=== PATIENT | female | born 1965 | race Caucasian/White ===

== ENCOUNTER 2017-05-26 15:06 | Emergency (ER) | payer OTHER ==
[~2017-05-26] VITALS: Ht 162.6 cm; Wt 56.0 kg
[2017-05-26 15:08] VITALS: BP 150/68; PULSE 84; RESP 15; TEMP 97.8; O2SAT 98
[2017-05-26 15:41] VITALS: BP 142/71; PULSE 74; RESP 15; O2SAT 98
[2017-05-26] MEDS ORDERED: SODIUM CHLORIDE 0.9% FLUSH 10 ML FLUSH IVF PRN (15:45)
--- NOTE | 2017-05-26 16:02 | RADRPT ---
EXAM DATE/TIME: 05/26/2017 15:44 [facility] COMPARISON: TIBIA/FIBULA RIGHT (AP/LAT), March 08, 2016, 11:52. INDICATIONS : Chest pain, anterior upper left MEDICAL HISTORY : None. SURGICAL HISTORY : None. ENCOUNTER: Initial ACUITY: 3 days PAIN SCORE: 4/10 LOCATION: Left chest FINDINGS: A single view of the chest demonstrates the lungs to be symmetrically aerated without evidence of mas s, infiltrate or effusion. The cardiomediastinal contours are unremarkable. Osseous structures are intact. CONCLUSION: 1. No acute cardiopulmonary findings. Tomi Ochoa MD on May 26, 2017 at 16:01 Board Certified Radiologist. This report was verified electronically.
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
[2017-05-26 16:16] LABS: AUTOMATED NEUTROPHIL # 2.5 TH/MM3 (1.8-7.7); BASOPHIL % 0.8 % (0.0-2.0); EOSINOPHIL # 0.2 TH/MM3 (0-0.4); EOSINOPHIL % 3.2 % (0.0-4.0); HEMATOCRIT 39.6 % (35.0-46.0); HEMO FLAGS DIFF FINAL; LYMPH % 35.9 % (9.0-44.0); LYMPHOCYTE # 1.7 TH/MM3 (1.0-4.8); MEAN CELL VOLUME 99.8 FL (80.0-100.0); MEAN CORPUSCULAR HEMOGLOBIN 33.6 PG (27.0-34.0); MEAN CORPUSCULAR HGB CONC 33.7 % (32.0-36.0); MONO % 7.9 % (0.0-8.0); NEUT % 52.2 % (16.0-70.0); PLATELET COUNT 310 TH/MM3 (150-450); RED BLOOD COUNT 3.97 MIL/MM3 (4.00-5.30); RED CELL DISTRIBUTION WIDTH 13.3 % (11.6-17.2); WHITE BLOOD COUNT 4.7 TH/MM3 (4.0-11.0)
[2017-05-26 16:32] LABS: ALT (GPT) 32 U/L (10-53); ANION GAP 5 MEQ/L (5-15); AST (GOT) 24 U/L (15-37); BICARBONATE 27.6 MEQ/L (21.0-32.0); BLOOD UREA NITROGEN 12 MG/DL (7-18); CHLORIDE 105 MEQ/L (98-107); GLOMERULAR FILTRATION RATE 84 ML/MIN (>89); MAGNESIUM 2.3 MG/DL (1.5-2.5); POTASSIUM 3.5 MEQ/L (3.5-5.1); SODIUM (NA) 138 MEQ/L (136-145)
[2017-05-26 16:34] LABS: APTT (PATIENT) 26.8 SEC (24.3-30.1); INTERNATIONAL NORMALIZED RATIO 0.9 RATIO; PROTHROMBIN TIME - PATIENT 10.1 SEC (9.8-11.6)
[2017-05-26 16:35] LABS: ALKALINE PHOSPHATASE 85 U/L (45-117); TOTAL BILIRUBIN ADULT 0.3 MG/DL (0.2-1.0)
[2017-05-26 16:39] LABS: CREATINE KINASE 87 U/L (26-192)
[2017-05-26 17:00] VITALS: BP 120/76; PULSE 68; RESP 15; O2SAT 98
[2017-05-26] MEDS ORDERED: IBUP-232 PO (17:01)
[2017-05-26 17:28] VITALS: BP 122/66
--- NOTE | 2017-05-27 12:00 | EKG ---
Date Performed: 05/26/2017 Time Performed: 15:39:17 PTAGE: 52 years EKG: Sinus rhythm WITH SHORT IL INTERVAL BORDERLINE ECG Compared to prior tracing no significant change PREVIOUS TRACING :07/31/11 DOCTOR: Ezio Nath Interpretating Date/Time 05/27/2017 11:57:40
== END 2017-05-26 17:34 | disposition home or self-care (01) ==
LOC: NEPE 15:06
DX: R07.89 Other chest pain (principal); R94.31 Abnormal electrocardiogram [ECG] [EKG]
CPT/HCPCS: 71010; 80053; 82550; 83690; 83735; 84484; 85025; 85610; 85730; 93005; 99285